=== PATIENT | female | born 1940 | race Caucasian/White ===

== ENCOUNTER 2017-11-09 16:31 | Inpatient (IN) | payer MEDICARE, OTHER ==
[2017-11-09] MEDS: PIPER-TAZO 3.375 GM IV (PMX) 100 ML IVPB ×2 (17:26→23:37)
[2017-11-09] MEDS: SOD CHLORIDE 0.9% 500 ML IV (17:26)
[2017-11-09] MEDS: morphine 4 MG/ML VIAL IV (17:27)
[2017-11-09] MEDS: ONDANSETRON 4 MG INJ IV (17:27)
[2017-11-09 17:29] LABS: ADD MAN DIFF? NO
[2017-11-09 17:34] LABS: WHITE BLOOD COUNT 11.4 10^3/ul (4.8-10.8)
[2017-11-09 17:34] LABS: BASOPHIL # 0.1 10^3/ul (0.0-0.1); BASOPHILS % 0.7 % (0.0-2.0); EOSINOPHILS # 0.2 10^3/ul (0.0-0.5); EOSINOPHILS % 1.7 % (0.0-7.0); HEMATOCRIT 28.3 % (37.0-47.0); HEMOGLOBIN 9.1 g/dl (12.0-16.0); LYMPHOCYTES # 1.6 10^3/ul (0.8-2.9); LYMPHOCYTES % 13.6 % (15.0-51.0); MEAN CORPUSCULAR HEMOGLOBIN 28.7 pg (29.0-33.0); MEAN CORPUSCULAR HGB CONC 32.2 g/dl (32.0-37.0); MEAN CORPUSCULAR VOLUME 89.3 fl (82.0-101.0); MEAN PLATELET VOLUME 8.7 fl (7.4-10.4); MONOCYTE # 0.9 10^3/ul (0.3-0.9); MONOCYTES % 7.5 % (0.0-11.0); NEUTROPHIL # 8.7 10^3/ul (1.6-7.5); PLATELET COUNT 601 10^3/UL (140-415); RED BLOOD COUNT 3.17 10^6/ul (4.20-5.40); RED CELL DISTRIBUTION WIDTH 13.4 % (11.5-14.5)
[2017-11-09 17:52] LABS: INR 1.05; PROTIME 13.8 Sec (11.9-14.9); PT RATIO 1.1
[2017-11-09 17:54] LABS: ALANINE AMINOTRANSFERASE 24 IU/L (13-69); ALBUMIN 3.7 g/dl (3.3-4.9); ALKALINE PHOSPHATASE 165 IU/L (42-121); ANION GAP 14 (8-16); ASPARTATE AMINO TRANSFERASE 35 IU/L (15-46); BLOOD UREA NITROGEN 16 mg/dl (7-20); CALCIUM 8.8 mg/dl (8.4-10.2); CARBON DIOXIDE 27 mmol/L (21-31); CHLORIDE 96 mmol/L (97-110); CREATININE 0.86 mg/dl (0.44-1.00); GLUCOSE 100 mg/dl (70-220); LIPASE 34 U/L (23-300); PARTIAL THROMBOPLASTIN TIME 41.1 Sec (25.0-35.0); SODIUM 132 mmol/L (135-144); TOTAL PROTEIN 7.8 g/dl (6.1-8.1)
[2017-11-09 17:58] LABS: POTASSIUM 5.3 mmol/L (3.5-5.1)
[2017-11-09] MEDS: VANCOMYCIN 1 GM (PMX) 250 ML IVPB (18:18)
[2017-11-09] MEDS: KETOROLAC 15 MG INJ IV (19:33)
[2017-11-09] MEDS ORDERED: VANCOMYCIN IV PER PHARMACY XX (22:30)
[2017-11-09] MEDS ORDERED: ONDANSETRON 4 MG INJ IV (22:30)
[2017-11-09] MEDS ORDERED: DEXTROSE 50% 50 ML SYRINGE IV ×2 (23:30)
[2017-11-09] MEDS ORDERED: GLUCOSE GEL 15 GRAM TUBE BUCCAL (23:30)
[2017-11-09] MEDS ORDERED: GLUCOSE GEL 15 GRAM TUBE PO ×2 (23:30)
[2017-11-09] MEDS ORDERED: GLUCAGON 1 MG INJ IM (23:30)
[2017-11-09] MEDS: HYDROCODONE/APAP (5/325) TAB PO (23:33)
[2017-11-09] MEDS: DEXTROSE 5%-0.45% NACL 1,000 ML IV (23:37)
[2017-11-10] MEDS: INSULIN ASPART [NOVOLOG] 3 ML PEN SC ×5 (01:49→21:00)
[2017-11-10] MEDS: ACCU-CHEK XX ×5 (02:00→21:00)
[2017-11-10 05:07] LABS: ADD MAN DIFF? NO
[2017-11-10 05:11] LABS: BASOPHIL # 0.1 10^3/ul (0.0-0.1); BASOPHILS % 0.8 % (0.0-2.0); EOSINOPHILS # 0.2 10^3/ul (0.0-0.5); EOSINOPHILS % 2.9 % (0.0-7.0); HEMATOCRIT 22.6 % (37.0-47.0); HEMOGLOBIN 7.2 g/dl (12.0-16.0); LYMPHOCYTES # 1.5 10^3/ul (0.8-2.9); LYMPHOCYTES % 18.8 % (15.0-51.0); MEAN CORPUSCULAR HEMOGLOBIN 28.9 pg (29.0-33.0); MEAN CORPUSCULAR HGB CONC 31.9 g/dl (32.0-37.0); MEAN CORPUSCULAR VOLUME 90.8 fl (82.0-101.0); MEAN PLATELET VOLUME 8.8 fl (7.4-10.4); MONOCYTE # 0.7 10^3/ul (0.3-0.9); MONOCYTES % 8.6 % (0.0-11.0); NEUTROPHIL # 5.3 10^3/ul (1.6-7.5); NEUTROPHILS % 68.5 % (39.0-77.0); PLATELET COUNT 432 10^3/UL (140-415); RED BLOOD COUNT 2.49 10^6/ul (4.20-5.40); RED CELL DISTRIBUTION WIDTH 13.7 % (11.5-14.5)
[2017-11-10 05:11] LABS: WHITE BLOOD COUNT 7.8 10^3/ul (4.8-10.8)
[2017-11-10 05:32] LABS: ALANINE AMINOTRANSFERASE 18 IU/L (13-69); ALBUMIN 2.6 g/dl (3.3-4.9); ALBUMIN/GLOBULIN RATIO 0.89; ALKALINE PHOSPHATASE 120 IU/L (42-121); ANION GAP 11 (8-16); ASPARTATE AMINO TRANSFERASE 22 IU/L (15-46); BLOOD UREA NITROGEN 17 mg/dl (7-20); CALCIUM 7.8 mg/dl (8.4-10.2); CARBON DIOXIDE 23 mmol/L (21-31); CHLORIDE 102 mmol/L (97-110); GLUCOSE 132 mg/dl (70-220); POTASSIUM 4.5 mmol/L (3.5-5.1); SODIUM 131 mmol/L (135-144); TOTAL PROTEIN 5.5 g/dl (6.1-8.1)
[2017-11-10] MEDS: PANTOPRAZOLE 40 MG INJ IV (05:40)
[2017-11-10] MEDS: PIPER-TAZO 3.375 GM IV (PMX) 100 ML IVPB ×3 (05:41→21:35)
[2017-11-10] MEDS ORDERED: ROPIVACAINE 0.5 % 30 ML VIAL (09:11)
[2017-11-10] MEDS ORDERED: PROPOFOL 20 ML (09:11)
[2017-11-10] MEDS ORDERED: FENTAnyl 50 MCG/ML VIAL (09:12)
[2017-11-10] MEDS ORDERED: MIDAZOLAM 1 MG/ML 2 ML INJ (09:19)
[2017-11-10] MEDS ORDERED: CEFAZOLIN 1 GM INJ (09:35)
[2017-11-10] MEDS ORDERED: METOCLOPRAMIDE 10 MG INJ (09:39)
[2017-11-10] MEDS ORDERED: ONDANSETRON 4 MG INJ (09:47)
[2017-11-10] MEDS ORDERED: EPHEDrine SULFATE 50 MG/5 ML SYG (09:49)
[2017-11-10] MEDS ORDERED: HYDROmorphONE 1 MG/5 ML IV SYRINGE IV ×3 (10:00)
[2017-11-10] MEDS ORDERED: HYDROmorphONE 0.5 MG/0.5 ML SYG IV ×2 (10:00→10:01)
[2017-11-10] MEDS ORDERED: ONDANSETRON 4 MG INJ IV (10:00)
[2017-11-10] MEDS ORDERED: HYDROmorphONE 1 MG/ML SYG IV (10:01)
[2017-11-10 11:35] LABS: IRON 30 ug/dl (35-150)
[2017-11-10 11:44] LABS: % IRON SATURATION 16 % SAT (22-52); TOTAL IRON BINDING CAPACITY 182 ug/dl (241-421)
[2017-11-10] MEDS: LACTATED RINGER'S 1,000 ML IV (12:03)
[2017-11-10] MEDS: LINAGLIPTIN 5 MG TABLET PO (13:35)
[2017-11-10] MEDS: CYANOCOBALAMIN 1000 MCG INJ IM (15:29)
[2017-11-10] MEDS: TERBINAFINE 250 MG TAB PO ×2 (15:29→21:35)
[2017-11-10] MEDS: EPOETIN ALFA (NESRD) 3,000 UNITS/ML VIAL SC (15:31)
[2017-11-10 15:54] LABS: HEPATITIS C VIRAL ANTIBODY NEGATIVE (NEGATIVE)
[2017-11-10] MEDS: SOD FERRIC GLUC COMPLX 125 MG in SOD CHLORIDE 0.9% 100 ML IVPB (16:49)
[2017-11-10] MEDS: VANCOMYCIN 750 MG in SOD CHLORIDE 0.9% 150 ML IVPB (18:49)
[2017-11-10] MEDS: HYDROCODONE/APAP (5/325) TAB PO (21:33)
[2017-11-10] MEDS: ATORVASTATIN 80 MG TAB PO (21:34)
[2017-11-10] MEDS: ACETYLCYSTEINE 600 MG CAP PO (21:35)
[2017-11-11] MEDS: LACTATED RINGER'S 1,000 ML IV ×2 (01:18→05:25)
[2017-11-11] MEDS: HYDROCODONE/APAP (5/325) TAB PO ×4 (01:51→16:01)
[2017-11-11] MEDS: ACCU-CHEK XX ×8 (02:00→21:00)
[2017-11-11] MEDS: PIPER-TAZO 3.375 GM IV (PMX) 100 ML IVPB ×3 (05:25→21:58)
[2017-11-11] MEDS: PANTOPRAZOLE 40 MG INJ IV (05:25)
[2017-11-11 05:56] LABS: ADD MAN DIFF? NO
[2017-11-11 05:58] LABS: WHITE BLOOD COUNT 7.8 10^3/ul (4.8-10.8)
[2017-11-11 05:58] LABS: RED BLOOD COUNT 2.75 10^6/ul (4.20-5.40)
[2017-11-11 05:59] LABS: BASOPHIL # 0.1 10^3/ul (0.0-0.1); BASOPHILS % 0.9 % (0.0-2.0); EOSINOPHILS # 0.2 10^3/ul (0.0-0.5); EOSINOPHILS % 3.1 % (0.0-7.0); HEMATOCRIT 25.1 % (37.0-47.0); LYMPHOCYTES # 1.5 10^3/ul (0.8-2.9); LYMPHOCYTES % 18.6 % (15.0-51.0); MEAN CORPUSCULAR HEMOGLOBIN 29.1 pg (29.0-33.0); MEAN CORPUSCULAR HGB CONC 31.9 g/dl (32.0-37.0); MEAN CORPUSCULAR VOLUME 91.3 fl (82.0-101.0); MEAN PLATELET VOLUME 8.7 fl (7.4-10.4); MONOCYTE # 0.7 10^3/ul (0.3-0.9); MONOCYTES % 9.2 % (0.0-11.0); NEUTROPHIL # 5.3 10^3/ul (1.6-7.5); NEUTROPHILS % 67.9 % (39.0-77.0); PLATELET COUNT 478 10^3/UL (140-415); RED CELL DISTRIBUTION WIDTH 14.1 % (11.5-14.5)
[2017-11-11 06:07] LABS: HEMOGLOBIN A1C 6.5 % (0-5.9)
[2017-11-11 06:20] LABS: ANION GAP 11 (8-16); BLOOD UREA NITROGEN 15 mg/dl (7-20); CALCIUM 8.1 mg/dl (8.4-10.2); CARBON DIOXIDE 26 mmol/L (21-31); CHLORIDE 104 mmol/L (97-110); CREATININE 1.02 mg/dl (0.44-1.00); GLUCOSE 90 mg/dl (70-220); POTASSIUM 4.5 mmol/L (3.5-5.1); SODIUM 136 mmol/L (135-144)
[2017-11-11] MEDS: INSULIN ASPART [NOVOLOG] 3 ML PEN SC ×4 (07:45→21:00)
[2017-11-11] MEDS: ACETYLCYSTEINE 600 MG CAP PO ×2 (08:41→20:30)
[2017-11-11] MEDS: LINAGLIPTIN 5 MG TABLET PO (08:41)
[2017-11-11] MEDS: CYANOCOBALAMIN 500 MCG TAB PO (08:41)
[2017-11-11] MEDS: TERBINAFINE 250 MG TAB PO ×2 (08:42→20:30)
[2017-11-11] MEDS: ENOXAPARIN 30 MG/0.3 ML SYG SC (08:43)
[2017-11-11] MEDS: morphine 2 MG INJ IV ×2 (10:15→14:10)
[2017-11-11] MEDS: CELECOXIB 100 MG CAP PO ×2 (11:57→20:30)
[2017-11-11] MEDS: GABAPENTIN 300 MG CAP PO ×2 (12:04→20:30)
[2017-11-11] MEDS: KETOROLAC 15 MG INJ IV (13:33)
[2017-11-11] MEDS: ALBUTEROL 0.083% (NEB) 2.5 MG/3 ML AMP HHN ×2 (14:00→20:21)
[2017-11-11] MEDS: SOD FERRIC GLUC COMPLX 125 MG in SOD CHLORIDE 0.9% 100 ML IVPB (16:01)
[2017-11-11] MEDS: VANCOMYCIN 750 MG in SOD CHLORIDE 0.9% 150 ML IVPB (17:25)
[2017-11-11] MEDS: ATORVASTATIN 80 MG TAB PO (20:30)
[2017-11-12] MEDS: ALBUTEROL 0.083% (NEB) 2.5 MG/3 ML AMP HHN ×5 (01:33→20:30)
[2017-11-12] MEDS: ACCU-CHEK XX ×8 (02:00→21:00)
[2017-11-12] MEDS: HYDROCODONE/APAP (5/325) TAB PO ×3 (02:30→21:13)
[2017-11-12] MEDS: PIPER-TAZO 3.375 GM IV (PMX) 100 ML IVPB (05:52)
[2017-11-12] MEDS: PANTOPRAZOLE (EC) 40 MG TAB PO (05:52)
[2017-11-12] MEDS: KETOROLAC 15 MG INJ IV ×2 (06:01→22:03)
[2017-11-12 06:12] LABS: ADD MAN DIFF? NO
[2017-11-12 06:18] LABS: BASOPHIL # 0.1 10^3/ul (0.0-0.1); BASOPHILS % 0.9 % (0.0-2.0); EOSINOPHILS # 0.3 10^3/ul (0.0-0.5); EOSINOPHILS % 3.5 % (0.0-7.0); HEMATOCRIT 23.5 % (37.0-47.0); HEMOGLOBIN 7.3 g/dl (12.0-16.0); LYMPHOCYTES # 1.4 10^3/ul (0.8-2.9); LYMPHOCYTES % 16.3 % (15.0-51.0); MEAN CORPUSCULAR HEMOGLOBIN 28.7 pg (29.0-33.0); MEAN CORPUSCULAR HGB CONC 31.1 g/dl (32.0-37.0); MEAN CORPUSCULAR VOLUME 92.5 fl (82.0-101.0); MEAN PLATELET VOLUME 8.7 fl (7.4-10.4); MONOCYTE # 0.8 10^3/ul (0.3-0.9); MONOCYTES % 9.4 % (0.0-11.0); NEUTROPHIL # 6.1 10^3/ul (1.6-7.5); NEUTROPHILS % 69.6 % (39.0-77.0); PLATELET COUNT 434 10^3/UL (140-415); RED BLOOD COUNT 2.54 10^6/ul (4.20-5.40); RED CELL DISTRIBUTION WIDTH 14.5 % (11.5-14.5)
[2017-11-12 06:18] LABS: WHITE BLOOD COUNT 8.8 10^3/ul (4.8-10.8)
[2017-11-12 06:59] LABS: ANION GAP 11 (8-16); BLOOD UREA NITROGEN 11 mg/dl (7-20); CALCIUM 8.2 mg/dl (8.4-10.2); CARBON DIOXIDE 25 mmol/L (21-31); CHLORIDE 107 mmol/L (97-110); CREATININE 0.95 mg/dl (0.44-1.00); GLUCOSE 80 mg/dl (70-220); POTASSIUM 5.1 mmol/L (3.5-5.1); SODIUM 138 mmol/L (135-144)
[2017-11-12] MEDS: INSULIN ASPART [NOVOLOG] 3 ML PEN SC ×4 (07:46→21:00)
[2017-11-12] MEDS: GABAPENTIN 300 MG CAP PO ×3 (08:15→21:13)
[2017-11-12] MEDS: LINAGLIPTIN 5 MG TABLET PO (08:15)
[2017-11-12] MEDS: CYANOCOBALAMIN 500 MCG TAB PO (08:15)
[2017-11-12] MEDS: CELECOXIB 100 MG CAP PO ×2 (08:15→21:11)
[2017-11-12] MEDS: TERBINAFINE 250 MG TAB PO ×2 (08:15→21:12)
[2017-11-12] MEDS: ACETYLCYSTEINE 600 MG CAP PO ×2 (08:15→21:13)
[2017-11-12] MEDS: ENOXAPARIN 30 MG/0.3 ML SYG SC (08:19)
[2017-11-12] MEDS: ERTAPENEM SODIUM 1 GM in SOD CHLORIDE 0.9% 100 ML IVPB (12:51)
[2017-11-12] MEDS: LIDOCAINE 1% (MPF) 5 ML VIAL SC (15:30)
[2017-11-12] MEDS: SOD FERRIC GLUC COMPLX 125 MG in SOD CHLORIDE 0.9% 100 ML IVPB (16:25)
[2017-11-12 17:47] LABS: VANCOMYCIN,TROUGH 13.2 ug/ml (10.0-20.0)
[2017-11-12] MEDS: VANCOMYCIN 750 MG in SOD CHLORIDE 0.9% 150 ML IVPB (18:09)
[2017-11-12] MEDS: ATORVASTATIN 80 MG TAB PO (21:12)
[2017-11-13] MEDS: ALBUTEROL 0.083% (NEB) 2.5 MG/3 ML AMP HHN ×3 (01:09→14:45)
[2017-11-13] MEDS: ACCU-CHEK XX ×8 (02:00→21:00)
[2017-11-13] MEDS: PANTOPRAZOLE (EC) 40 MG TAB PO (05:21)
[2017-11-13] MEDS: morphine LIQ (10 MG/5 ML) CUP PO (05:21)
[2017-11-13] MEDS ORDERED: PENDING SANTYL ORDER FOR WOUND CARE XX (07:30)
[2017-11-13] MEDS: INSULIN ASPART [NOVOLOG] 3 ML PEN SC ×4 (08:00→21:00)
[2017-11-13] MEDS: TERBINAFINE 250 MG TAB PO ×2 (09:33→22:10)
[2017-11-13] MEDS: ACETYLCYSTEINE 600 MG CAP PO (09:34)
[2017-11-13] MEDS: CELECOXIB 100 MG CAP PO ×2 (09:34→22:11)
[2017-11-13] MEDS: CYANOCOBALAMIN 500 MCG TAB PO (09:34)
[2017-11-13] MEDS: GABAPENTIN 300 MG CAP PO ×2 (09:34→13:58)
[2017-11-13] MEDS: LINAGLIPTIN 5 MG TABLET PO (09:34)
[2017-11-13] MEDS: ENOXAPARIN 30 MG/0.3 ML SYG SC (09:36)
[2017-11-13] MEDS: HYDROCODONE/APAP (5/325) TAB PO (10:35)
[2017-11-13] MEDS ORDERED: POLYETHYLENE GLYCOL 17 GM PACKET PO (13:30)
[2017-11-13] MEDS: ERTAPENEM SODIUM 1 GM in SOD CHLORIDE 0.9% 100 ML IVPB (13:58)
[2017-11-13] MEDS: DOCUSATE SODIUM 100 MG CAP PO (13:58)
[2017-11-13] MEDS: SOD CHLORIDE 0.9% 100 ML (15:45)
[2017-11-13] MEDS: FLUCONAZOLE 100 MG TAB PO (16:24)
[2017-11-13] MEDS: VANCOMYCIN 750 MG in SOD CHLORIDE 0.9% 150 ML IVPB (17:34)
[2017-11-13] MEDS: BALSAM PERU/CASTOR OIL 60 GM TUBE TOP (22:10)
[2017-11-13] MEDS: ATORVASTATIN 80 MG TAB PO (22:11)
[2017-11-13] MEDS: GABAPENTIN 400 MG CAP PO (22:11)
[2017-11-14] MEDS: ACCU-CHEK XX ×8 (02:00→21:00)
[2017-11-14] MEDS: ALBUTEROL 0.083% (NEB) 2.5 MG/3 ML AMP HHN ×4 (02:10→20:25)
[2017-11-14] MEDS: PANTOPRAZOLE (EC) 40 MG TAB PO (06:03)
[2017-11-14 06:15] LABS: ADD MAN DIFF? NO
[2017-11-14 06:33] LABS: PHOSPHORUS 2.7 mg/dl (2.5-4.9); WHITE BLOOD COUNT 8.2 10^3/ul (4.8-10.8)
[2017-11-14 06:33] LABS: BASOPHIL # 0.1 10^3/ul (0.0-0.1); BASOPHILS % 0.9 % (0.0-2.0); EOSINOPHILS # 0.3 10^3/ul (0.0-0.5); EOSINOPHILS % 3.5 % (0.0-7.0); HEMATOCRIT 23.9 % (37.0-47.0); HEMOGLOBIN 7.4 g/dl (12.0-16.0); LYMPHOCYTES # 0.9 10^3/ul (0.8-2.9); LYMPHOCYTES % 10.8 % (15.0-51.0); MEAN CORPUSCULAR HEMOGLOBIN 28.7 pg (29.0-33.0); MEAN CORPUSCULAR VOLUME 92.6 fl (82.0-101.0); MEAN PLATELET VOLUME 8.9 fl (7.4-10.4); MONOCYTE # 0.9 10^3/ul (0.3-0.9); MONOCYTES % 10.3 % (0.0-11.0); NEUTROPHIL # 6.1 10^3/ul (1.6-7.5); NUCLEATED RED BLOOD CELLS% 0.2 /100WBC (0.0-0.0); PLATELET COUNT 411 10^3/UL (140-415); RED BLOOD COUNT 2.58 10^6/ul (4.20-5.40); RED CELL DISTRIBUTION WIDTH 15.1 % (11.5-14.5)
[2017-11-14 06:51] LABS: ANION GAP 9 (8-16); BLOOD UREA NITROGEN 7 mg/dl (7-20); CALCIUM 8.3 mg/dl (8.4-10.2); CARBON DIOXIDE 25 mmol/L (21-31); CHLORIDE 108 mmol/L (97-110); CREATININE 0.72 mg/dl (0.44-1.00); GLUCOSE 98 mg/dl (70-220); POTASSIUM 4.1 mmol/L (3.5-5.1); SODIUM 138 mmol/L (135-144)
[2017-11-14] MEDS: INSULIN ASPART [NOVOLOG] 3 ML PEN SC ×4 (08:00→21:00)
[2017-11-14] MEDS: LINAGLIPTIN 5 MG TABLET PO (08:19)
[2017-11-14] MEDS: CELECOXIB 100 MG CAP PO ×2 (08:47→21:20)
[2017-11-14] MEDS: GABAPENTIN 400 MG CAP PO ×3 (08:47→21:20)
[2017-11-14] MEDS: FLUCONAZOLE 100 MG TAB PO (08:47)
[2017-11-14] MEDS: TERBINAFINE 250 MG TAB PO ×2 (08:47→21:20)
[2017-11-14] MEDS: ENOXAPARIN 30 MG/0.3 ML SYG SC (08:48)
[2017-11-14] MEDS: CYANOCOBALAMIN 500 MCG TAB PO (08:48)
[2017-11-14] MEDS: BALSAM PERU/CASTOR OIL 60 GM TUBE TOP ×2 (08:55→21:22)
[2017-11-14] MEDS: ERTAPENEM SODIUM 1 GM in SOD CHLORIDE 0.9% 100 ML IVPB (13:20)
[2017-11-14] MEDS: HYDROCODONE/APAP (5/325) TAB PO (13:25)
[2017-11-14] MEDS: DOCUSATE SODIUM 100 MG CAP PO (13:25)
[2017-11-14] MEDS: NEBIVOLOL 5 MG TAB PO (14:36)
[2017-11-14] MEDS: LISINOPRIL 5 MG TAB PO (16:27)
[2017-11-14] MEDS: morphine LIQ (10 MG/5 ML) CUP PO (16:32)
[2017-11-14] MEDS: VANCOMYCIN 750 MG in SOD CHLORIDE 0.9% 150 ML IVPB (18:02)
[2017-11-14] MEDS: ATORVASTATIN 80 MG TAB PO (21:20)
[2017-11-15] MEDS: ALBUTEROL 0.083% (NEB) 2.5 MG/3 ML AMP HHN ×4 (02:00→21:19)
[2017-11-15] MEDS: ACCU-CHEK XX ×9 (02:00→23:29)
[2017-11-15] MEDS: PANTOPRAZOLE (EC) 40 MG TAB PO (05:19)
[2017-11-15] MEDS: morphine LIQ (10 MG/5 ML) CUP PO (05:19)
[2017-11-15] MEDS: INSULIN ASPART [NOVOLOG] 3 ML PEN SC ×4 (08:00→21:00)
[2017-11-15] MEDS: ENOXAPARIN 30 MG/0.3 ML SYG SC (11:23)
[2017-11-15] MEDS: CELECOXIB 100 MG CAP PO ×2 (11:24→20:32)
[2017-11-15] MEDS: NEBIVOLOL 5 MG TAB PO (11:24)
[2017-11-15] MEDS: BALSAM PERU/CASTOR OIL 60 GM TUBE TOP ×2 (11:25→20:33)
[2017-11-15] MEDS: GABAPENTIN 400 MG CAP PO ×3 (11:25→20:32)
[2017-11-15] MEDS: LINAGLIPTIN 5 MG TABLET PO (11:25)
[2017-11-15] MEDS: FLUCONAZOLE 100 MG TAB PO (11:25)
[2017-11-15] MEDS: CYANOCOBALAMIN 500 MCG TAB PO (11:25)
[2017-11-15] MEDS: TERBINAFINE 250 MG TAB PO ×2 (11:25→20:32)
[2017-11-15] MEDS: LISINOPRIL 5 MG TAB PO (11:28)
[2017-11-15] MEDS: ERTAPENEM SODIUM 1 GM in SOD CHLORIDE 0.9% 100 ML IVPB (14:23)
[2017-11-15] MEDS: CYANOCOBALAMIN 1000 MCG INJ IM (15:29)
[2017-11-15] MEDS: FERROUS FUMARATE (SR) TAB PO (15:29)
[2017-11-15] MEDS: VANCOMYCIN 750 MG in SOD CHLORIDE 0.9% 150 ML IVPB (18:09)
[2017-11-15] MEDS: ATORVASTATIN 80 MG TAB PO (20:32)
[2017-11-15] MEDS: HYDROCODONE/APAP (5/325) TAB PO (20:33)
[2017-11-16] MEDS: ALBUTEROL 0.083% (NEB) 2.5 MG/3 ML AMP HHN (01:39)
[2017-11-16] MEDS: PANTOPRAZOLE (EC) 40 MG TAB PO (05:38)
[2017-11-16 06:00] LABS: ADD MAN DIFF? NO
[2017-11-16 06:02] LABS: BASOPHIL # 0.1 10^3/ul (0.0-0.1); BASOPHILS % 0.7 % (0.0-2.0); EOSINOPHILS # 0.3 10^3/ul (0.0-0.5); EOSINOPHILS % 4.8 % (0.0-7.0); HEMATOCRIT 23.9 % (37.0-47.0); HEMOGLOBIN 7.6 g/dl (12.0-16.0); LYMPHOCYTES # 1.4 10^3/ul (0.8-2.9); LYMPHOCYTES % 20.1 % (15.0-51.0); MEAN CORPUSCULAR HEMOGLOBIN 29.9 pg (29.0-33.0); MEAN CORPUSCULAR HGB CONC 31.8 g/dl (32.0-37.0); MEAN CORPUSCULAR VOLUME 94.1 fl (82.0-101.0); MEAN PLATELET VOLUME 8.7 fl (7.4-10.4); MONOCYTE # 0.7 10^3/ul (0.3-0.9); MONOCYTES % 9.4 % (0.0-11.0); NEUTROPHIL # 4.4 10^3/ul (1.6-7.5); NEUTROPHILS % 64.1 % (39.0-77.0); NUCLEATED RED BLOOD CELLS% 0.4 /100WBC (0.0-0.0); PLATELET COUNT 366 10^3/UL (140-415); RED BLOOD COUNT 2.54 10^6/ul (4.20-5.40); RED CELL DISTRIBUTION WIDTH 15.4 % (11.5-14.5)
[2017-11-16 06:02] LABS: WHITE BLOOD COUNT 6.9 10^3/ul (4.8-10.8)
[2017-11-16 07:00] LABS: MAGNESIUM 1.9 mg/dl (1.7-2.5)
[2017-11-16 07:00] LABS: PHOSPHORUS 3.1 mg/dl (2.5-4.9)
[2017-11-16 07:06] LABS: ANION GAP 13 (8-16); BLOOD UREA NITROGEN 8 mg/dl (7-20); CALCIUM 7.9 mg/dl (8.4-10.2); CARBON DIOXIDE 26 mmol/L (21-31); CHLORIDE 107 mmol/L (97-110); CREATININE 0.65 mg/dl (0.44-1.00); GLUCOSE 69 mg/dl (70-220); POTASSIUM 4.1 mmol/L (3.5-5.1); SODIUM 142 mmol/L (135-144)
[2017-11-16] MEDS: ACCU-CHEK XX ×7 (07:30→21:00)
[2017-11-16] MEDS: INSULIN ASPART [NOVOLOG] 3 ML PEN SC ×4 (07:57→21:00)
[2017-11-16] MEDS: CYANOCOBALAMIN 500 MCG TAB PO ×4 (08:22→12:18)
[2017-11-16] MEDS: NEBIVOLOL 5 MG TAB PO (08:23)
[2017-11-16] MEDS: FLUCONAZOLE 100 MG TAB PO (08:23)
[2017-11-16] MEDS: GABAPENTIN 400 MG CAP PO ×3 (08:23→21:29)
[2017-11-16] MEDS: LISINOPRIL 5 MG TAB PO ×2 (08:23→21:29)
[2017-11-16] MEDS: FERROUS FUMARATE (SR) TAB PO (08:23)
[2017-11-16] MEDS: CELECOXIB 100 MG CAP PO ×2 (08:23→21:29)
[2017-11-16] MEDS: TERBINAFINE 250 MG TAB PO ×2 (08:23→21:29)
[2017-11-16] MEDS: LINAGLIPTIN 5 MG TABLET PO (08:23)
[2017-11-16] MEDS: ENOXAPARIN 30 MG/0.3 ML SYG SC (08:25)
[2017-11-16] MEDS: BALSAM PERU/CASTOR OIL 60 GM TUBE TOP ×2 (08:25→21:30)
[2017-11-16] MEDS: HYDROCODONE/APAP (5/325) TAB PO ×2 (11:17→18:38)
[2017-11-16] MEDS: ERTAPENEM SODIUM 1 GM in SOD CHLORIDE 0.9% 100 ML IVPB (12:18)
[2017-11-16] MEDS: SOD FERRIC GLUC COMPLX 125 MG in SOD CHLORIDE 0.9% 100 ML IVPB (16:20)
[2017-11-16] MEDS: VANCOMYCIN 750 MG in SOD CHLORIDE 0.9% 150 ML IVPB (17:32)
[2017-11-16] MEDS: ATORVASTATIN 80 MG TAB PO (21:29)
[2017-11-17] MEDS: HYDROCODONE/APAP (5/325) TAB PO ×4 (00:33→20:53)
[2017-11-17] MEDS: ACCU-CHEK XX ×8 (02:00→21:12)
[2017-11-17] MEDS: PANTOPRAZOLE (EC) 40 MG TAB PO (05:35)
[2017-11-17] MEDS: INSULIN ASPART [NOVOLOG] 3 ML PEN SC ×4 (08:00→21:00)
[2017-11-17] MEDS: ENOXAPARIN 30 MG/0.3 ML SYG SC (08:57)
[2017-11-17] MEDS: FLUCONAZOLE 100 MG TAB PO (08:59)
[2017-11-17] MEDS: FERROUS FUMARATE (SR) TAB PO (08:59)
[2017-11-17] MEDS: CYANOCOBALAMIN 500 MCG TAB PO (08:59)
[2017-11-17] MEDS: LINAGLIPTIN 5 MG TABLET PO (08:59)
[2017-11-17] MEDS: CELECOXIB 100 MG CAP PO ×2 (08:59→20:52)
[2017-11-17] MEDS: GABAPENTIN 400 MG CAP PO ×3 (08:59→20:52)
[2017-11-17] MEDS: TERBINAFINE 250 MG TAB PO (09:00)
[2017-11-17] MEDS: LISINOPRIL 5 MG TAB PO ×2 (09:00→20:53)
[2017-11-17] MEDS: NEBIVOLOL 5 MG TAB PO (09:00)
[2017-11-17] MEDS: BALSAM PERU/CASTOR OIL 60 GM TUBE TOP ×2 (09:01→21:11)
[2017-11-17] MEDS: ERTAPENEM SODIUM 1 GM in SOD CHLORIDE 0.9% 100 ML IVPB (13:06)
[2017-11-17] MEDS: SOD FERRIC GLUC COMPLX 125 MG in SOD CHLORIDE 0.9% 100 ML IVPB (16:33)
[2017-11-17 18:18] LABS: VANCOMYCIN,TROUGH 14.8 ug/ml (10.0-20.0)
[2017-11-17] MEDS: VANCOMYCIN 750 MG in SOD CHLORIDE 0.9% 150 ML IVPB (18:42)
[2017-11-17] MEDS: ATORVASTATIN 80 MG TAB PO (20:52)
[2017-11-17] MEDS ORDERED: metFORMIN 500 MG TAB (21:04)
[2017-11-17] MEDS: metFORMIN (XR) 500 MG TAB PO (22:28)
[2017-11-18] MEDS: ACCU-CHEK XX ×8 (02:00→21:00)
[2017-11-18 05:04] LABS: ADD MAN DIFF? NO
[2017-11-18 05:16] LABS: WHITE BLOOD COUNT 6.7 10^3/ul (4.8-10.8)
[2017-11-18 05:16] LABS: BASOPHIL # 0.1 10^3/ul (0.0-0.1); BASOPHILS % 0.9 % (0.0-2.0); EOSINOPHILS # 0.3 10^3/ul (0.0-0.5); EOSINOPHILS % 4.2 % (0.0-7.0); HEMATOCRIT 25.5 % (37.0-47.0); HEMOGLOBIN 8.1 g/dl (12.0-16.0); LYMPHOCYTES # 1.3 10^3/ul (0.8-2.9); LYMPHOCYTES % 19.7 % (15.0-51.0); MEAN CORPUSCULAR HEMOGLOBIN 29.8 pg (29.0-33.0); MEAN CORPUSCULAR HGB CONC 31.8 g/dl (32.0-37.0); MEAN CORPUSCULAR VOLUME 93.8 fl (82.0-101.0); MEAN PLATELET VOLUME 9.5 fl (7.4-10.4); MONOCYTE # 0.7 10^3/ul (0.3-0.9); MONOCYTES % 10.3 % (0.0-11.0); NEUTROPHIL # 4.3 10^3/ul (1.6-7.5); NEUTROPHILS % 64.2 % (39.0-77.0); PLATELET COUNT 354 10^3/UL (140-415); RED BLOOD COUNT 2.72 10^6/ul (4.20-5.40); RED CELL DISTRIBUTION WIDTH 16.3 % (11.5-14.5)
[2017-11-18 05:32] LABS: ANION GAP 11 (8-16); BLOOD UREA NITROGEN 10 mg/dl (7-20); CALCIUM 8.1 mg/dl (8.4-10.2); CARBON DIOXIDE 32 mmol/L (21-31); CHLORIDE 103 mmol/L (97-110); CREATININE 0.67 mg/dl (0.44-1.00); GLUCOSE 84 mg/dl (70-220); POTASSIUM 3.8 mmol/L (3.5-5.1); SODIUM 142 mmol/L (135-144)
[2017-11-18] MEDS: PANTOPRAZOLE (EC) 40 MG TAB PO (06:26)
[2017-11-18] MEDS: INSULIN ASPART [NOVOLOG] 3 ML PEN SC ×4 (08:00→21:00)
[2017-11-18] MEDS: GABAPENTIN 400 MG CAP PO ×3 (09:35→20:26)
[2017-11-18] MEDS: FERROUS FUMARATE (SR) TAB PO (09:35)
[2017-11-18] MEDS: FLUCONAZOLE 100 MG TAB PO (09:35)
[2017-11-18] MEDS: CELECOXIB 100 MG CAP PO (09:35)
[2017-11-18] MEDS: NEBIVOLOL 5 MG TAB PO (09:35)
[2017-11-18] MEDS: BALSAM PERU/CASTOR OIL 60 GM TUBE TOP ×2 (09:36→21:35)
[2017-11-18] MEDS: CYANOCOBALAMIN 500 MCG TAB PO (09:36)
[2017-11-18] MEDS: LISINOPRIL 5 MG TAB PO ×2 (09:36→21:31)
[2017-11-18] MEDS: ENOXAPARIN 30 MG/0.3 ML SYG SC (09:37)
[2017-11-18] MEDS: ERTAPENEM SODIUM 1 GM in SOD CHLORIDE 0.9% 100 ML IVPB (12:36)
[2017-11-18] MEDS: VANCOMYCIN 750 MG in SOD CHLORIDE 0.9% 150 ML IVPB (18:03)
[2017-11-18] MEDS: ATORVASTATIN 80 MG TAB PO (20:26)
[2017-11-18] MEDS: metFORMIN (XR) 500 MG TAB PO (21:33)
[2017-11-18] MEDS: HYDROCODONE/APAP (5/325) TAB PO (22:59)
[2017-11-19] MEDS: ACCU-CHEK XX ×8 (01:46→21:00)
[2017-11-19] MEDS: PANTOPRAZOLE (EC) 40 MG TAB PO (06:14)
[2017-11-19] MEDS: INSULIN ASPART [NOVOLOG] 3 ML PEN SC ×4 (08:00→20:55)
[2017-11-19] MEDS: CYANOCOBALAMIN 500 MCG TAB PO (09:18)
[2017-11-19] MEDS: NEBIVOLOL 5 MG TAB PO (09:19)
[2017-11-19] MEDS: FERROUS FUMARATE (SR) TAB PO (09:19)
[2017-11-19] MEDS: LISINOPRIL 5 MG TAB PO ×2 (09:19→20:55)
[2017-11-19] MEDS: GABAPENTIN 400 MG CAP PO ×2 (09:19→12:50)
[2017-11-19] MEDS: BALSAM PERU/CASTOR OIL 60 GM TUBE TOP ×2 (09:20→21:03)
[2017-11-19] MEDS: FLUCONAZOLE 100 MG TAB PO (09:20)
[2017-11-19] MEDS: ENOXAPARIN 30 MG/0.3 ML SYG SC (09:21)
[2017-11-19] MEDS: ERTAPENEM SODIUM 1 GM in SOD CHLORIDE 0.9% 100 ML IVPB (12:49)
[2017-11-19] MEDS: ALTEPLASE (CATHFLO) 2 MG INJ CATHETER (17:36)
[2017-11-19] MEDS: VANCOMYCIN 750 MG in SOD CHLORIDE 0.9% 150 ML IVPB (18:45)
[2017-11-19] MEDS: ATORVASTATIN 80 MG TAB PO (20:55)
[2017-11-19] MEDS: GABAPENTIN 100 MG CAP PO (20:55)
[2017-11-19] MEDS: metFORMIN (XR) 500 MG TAB PO (21:01)
[2017-11-19] MEDS: hydrALAzine 20 MG INJ IV (22:15)
[2017-11-20] MEDS: ACCU-CHEK XX ×7 (02:00→21:00)
[2017-11-20] MEDS: ACETAMINOPHEN 325 MG TAB PO (03:14)
[2017-11-20] MEDS: PANTOPRAZOLE (EC) 40 MG TAB PO (06:02)
[2017-11-20 06:05] LABS: ANION GAP 9 (8-16); BLOOD UREA NITROGEN 12 mg/dl (7-20); CALCIUM 8.8 mg/dl (8.4-10.2); CARBON DIOXIDE 31 mmol/L (21-31); CHLORIDE 101 mmol/L (97-110); CREATININE 0.57 mg/dl (0.44-1.00); GLUCOSE 95 mg/dl (70-220); SODIUM 137 mmol/L (135-144)
[2017-11-20] MEDS: INSULIN ASPART [NOVOLOG] 3 ML PEN SC ×4 (08:00→21:00)
[2017-11-20] MEDS: FERROUS FUMARATE (SR) TAB PO (09:34)
[2017-11-20] MEDS: FLUCONAZOLE 100 MG TAB PO (09:34)
[2017-11-20] MEDS: NEBIVOLOL 5 MG TAB PO (09:34)
[2017-11-20] MEDS: GABAPENTIN 100 MG CAP PO ×3 (09:34→21:09)
[2017-11-20] MEDS: CYANOCOBALAMIN 500 MCG TAB PO (09:34)
[2017-11-20] MEDS: LISINOPRIL 5 MG TAB PO (09:34)
[2017-11-20] MEDS: ENOXAPARIN 30 MG/0.3 ML SYG SC (09:35)
[2017-11-20] MEDS: BALSAM PERU/CASTOR OIL 60 GM TUBE TOP ×2 (09:36→21:11)
[2017-11-20 11:22] LABS: ADD UMIC NO; UR ASCORBIC ACID NEGATIVE (NEGATIVE); UR BILIRUBIN (Dip) NEGATIVE (NEGATIVE); UR BLOOD (Dip) NEGATIVE (NEGATIVE); UR CLARITY CLEAR (CLEAR); UR COLOR COLORLESS (YELLOW); UR GLUCOSE (Dip) 3+ mg/dL (NEGATIVE); UR KETONES (Dip) NEGATIVE (NEGATIVE); UR LEUKOCYTE ESTERASE (Dip) NEGATIVE Leu/ul (NEGATIVE); UR NITRITE (Dip) NEGATIVE (NEGATIVE); UR SPECIFIC GRAVITY (Dip) 1.008 (1.003-1.030); UR TOTAL PROTEIN (Dip) NEGATIVE (NEGATIVE); UR UROBILINOGEN (Dip) NEGATIVE (NEGATIVE)
[2017-11-20] MEDS: ERTAPENEM SODIUM 1 GM in SOD CHLORIDE 0.9% 100 ML IVPB (13:06)
[2017-11-20] MEDS: metFORMIN (XR) 500 MG TAB PO ×3 (17:58→18:05)
[2017-11-20] MEDS: VANCOMYCIN 750 MG in SOD CHLORIDE 0.9% 150 ML IVPB (17:59)
[2017-11-20] MEDS: hydrALAzine 20 MG INJ IV (18:40)
[2017-11-20] MEDS ORDERED: LISINOPRIL 10 MG TAB PO (21:00)
[2017-11-20] MEDS: ATORVASTATIN 80 MG TAB PO (21:09)
[2017-11-20] MEDS: LISINOPRIL 20 MG TAB PO (21:09)
[2017-11-21] MEDS: ACCU-CHEK XX ×5 (02:00→20:42)
[2017-11-21] MEDS: PANTOPRAZOLE (EC) 40 MG TAB PO (06:08)
[2017-11-21] MEDS: INSULIN ASPART [NOVOLOG] 3 ML PEN SC ×4 (08:00→20:41)
[2017-11-21] MEDS: FLUCONAZOLE 100 MG TAB PO (08:34)
[2017-11-21] MEDS: CYANOCOBALAMIN 500 MCG TAB PO (08:34)
[2017-11-21] MEDS: FERROUS FUMARATE (SR) TAB PO (08:34)
[2017-11-21] MEDS: NEBIVOLOL 5 MG TAB PO (08:35)
[2017-11-21] MEDS: GABAPENTIN 100 MG CAP PO ×2 (08:35→20:36)
[2017-11-21] MEDS: LISINOPRIL 20 MG TAB PO ×2 (08:35→20:35)
[2017-11-21] MEDS: ENOXAPARIN 30 MG/0.3 ML SYG SC (08:36)
[2017-11-21] MEDS: BALSAM PERU/CASTOR OIL 60 GM TUBE TOP ×2 (08:38→20:42)
[2017-11-21] MEDS: ERTAPENEM SODIUM 1 GM in SOD CHLORIDE 0.9% 100 ML IVPB (12:40)
[2017-11-21] MEDS: CELECOXIB 100 MG CAP PO ×2 (12:52→20:36)
[2017-11-21] MEDS: metFORMIN (XR) 500 MG TAB PO (18:00)
[2017-11-21] MEDS: VANCOMYCIN 750 MG in SOD CHLORIDE 0.9% 150 ML IVPB (18:00)
[2017-11-21] MEDS: HYDROCODONE/APAP (5/325) TAB PO (18:01)
[2017-11-21] MEDS: ATORVASTATIN 80 MG TAB PO (20:36)
[2017-11-22] MEDS: DEXTROSE 5% 1,000 ML IV (04:30)
[2017-11-22 04:54] LABS: ADD MAN DIFF? NO
[2017-11-22 05:03] LABS: BASOPHIL # 0.1 10^3/ul (0.0-0.1); EOSINOPHILS # 0.4 10^3/ul (0.0-0.5); EOSINOPHILS % 4.1 % (0.0-7.0); HEMATOCRIT 28.3 % (37.0-47.0); HEMOGLOBIN 9.1 g/dl (12.0-16.0); LYMPHOCYTES # 1.3 10^3/ul (0.8-2.9); LYMPHOCYTES % 14.9 % (15.0-51.0); MEAN CORPUSCULAR HEMOGLOBIN 29.2 pg (29.0-33.0); MEAN CORPUSCULAR HGB CONC 32.2 g/dl (32.0-37.0); MEAN CORPUSCULAR VOLUME 90.7 fl (82.0-101.0); MEAN PLATELET VOLUME 9.4 fl (7.4-10.4); MONOCYTE # 0.8 10^3/ul (0.3-0.9); MONOCYTES % 8.7 % (0.0-11.0); NEUTROPHIL # 6.2 10^3/ul (1.6-7.5); NEUTROPHILS % 70.8 % (39.0-77.0); PLATELET COUNT 468 10^3/UL (140-415); RED BLOOD COUNT 3.12 10^6/ul (4.20-5.40); RED CELL DISTRIBUTION WIDTH 16.3 % (11.5-14.5)
[2017-11-22 05:03] LABS: WHITE BLOOD COUNT 8.8 10^3/ul (4.8-10.8)
[2017-11-22 05:22] LABS: ANION GAP 13 (8-16); BLOOD UREA NITROGEN 21 mg/dl (7-20); CALCIUM 8.2 mg/dl (8.4-10.2); CARBON DIOXIDE 25 mmol/L (21-31); CHLORIDE 97 mmol/L (97-110); CREATININE 0.63 mg/dl (0.44-1.00); GLUCOSE 70 mg/dl (70-220); POTASSIUM 3.6 mmol/L (3.5-5.1); SODIUM 131 mmol/L (135-144)
[2017-11-22] MEDS: PANTOPRAZOLE (EC) 40 MG TAB PO (05:45)
[2017-11-22] MEDS: INSULIN ASPART [NOVOLOG] 3 ML PEN SC ×4 (08:00→20:31)
[2017-11-22] MEDS: CYANOCOBALAMIN 500 MCG TAB PO (08:07)
[2017-11-22] MEDS: FLUCONAZOLE 100 MG TAB PO (08:07)
[2017-11-22] MEDS: FERROUS FUMARATE (SR) TAB PO (08:08)
[2017-11-22] MEDS: NEBIVOLOL 5 MG TAB PO (08:08)
[2017-11-22] MEDS: LISINOPRIL 20 MG TAB PO ×2 (08:08→20:14)
[2017-11-22] MEDS: GABAPENTIN 100 MG CAP PO ×2 (08:08→20:13)
[2017-11-22] MEDS: CELECOXIB 100 MG CAP PO ×2 (08:08→20:14)
[2017-11-22] MEDS: ENOXAPARIN 30 MG/0.3 ML SYG SC (08:09)
[2017-11-22] MEDS: BALSAM PERU/CASTOR OIL 60 GM TUBE TOP ×2 (08:13→20:25)
[2017-11-22] MEDS: ACCU-CHEK XX ×3 (08:13→17:35)
[2017-11-22] MEDS: ERTAPENEM SODIUM 1 GM in SOD CHLORIDE 0.9% 100 ML IVPB (14:57)
[2017-11-22] MEDS: hydrALAzine 20 MG INJ IV (15:50)
[2017-11-22 17:36] LABS: VANCOMYCIN,TROUGH 14.3 ug/ml (10.0-20.0)
[2017-11-22] MEDS: VANCOMYCIN 750 MG in SOD CHLORIDE 0.9% 150 ML IVPB (18:00)
[2017-11-22] MEDS: metFORMIN (XR) 500 MG TAB PO (18:05)
[2017-11-22] MEDS: ATORVASTATIN 80 MG TAB PO (20:13)
== END 2017-11-22 20:45 | DRG 617 ==
LOC: PP2 11-19 01:28 → E/R 16:31 → PP2 17:53
PROC: 0Y6W0Z0 Detachment at Left 4th Toe, Complete, Open Approach (ICD-10-PCS; principal; 2017-11-10 09:18)
PROC: 0Y6Y0Z0 Detachment at Left 5th Toe, Complete, Open Approach (ICD-10-PCS; 2017-11-10 09:18)
PROC: 02HV33Z Insertion of Infusion Device into Superior Vena Cava, Percutaneous Approach (ICD-10-PCS; 2017-11-10 09:18)
DX: E11.621 Type 2 diabetes mellitus with foot ulcer (principal); L03.116 Cellulitis of left lower limb; E87.1 Hypo-osmolality and hyponatremia; E11.52 Type 2 diabetes mellitus with diabetic peripheral angiopathy with gangrene; M86.9 Osteomyelitis, unspecified; L97.529 Non-pressure chronic ulcer of other part of left foot with unspecified severity; E11.628 Type 2 diabetes mellitus with other skin complications; I10 Essential (primary) hypertension; E78.5 Hyperlipidemia, unspecified; E11.69 Type 2 diabetes mellitus with other specified complication; D50.9 Iron deficiency anemia, unspecified; E53.8 Deficiency of other specified B group vitamins; B35.1 Tinea unguium; B96.20 Unspecified Escherichia coli [E. coli] as the cause of diseases classified elsewhere; Z16.24 Resistance to multiple antibiotics
CPT/HCPCS: 36415; 36569; 71045; 76937; 80048; 80053; 80202; 81003; 82607; 82728; 82962; 83036; 83540; 83690; 83735; 84100; 85018; 85025; 85610; 85730; 86803; 87070; 87086; 88305; 88311; 94640; 94664; 96374; 97110; 97161; 97530; 99285-25

== ENCOUNTER 2018-02-22 14:35 | Day surgery (SDC) | payer MEDICARE, OTHER ==
[2018-02-22 16:19] LABS: INR 0.86; PROTIME 11.8 Sec (11.9-14.9); PT RATIO 0.9
[2018-02-22 16:34] LABS: PARTIAL THROMBOPLASTIN TIME 38.6 Sec (23.0-35.0)
[2018-02-22] MEDS ORDERED: MIDAZOLAM 1 MG/ML 2 ML INJ (16:45)
[2018-02-22] MEDS ORDERED: LIDOCAINE 2% (SDV) 5 ML INJ (16:45)
[2018-02-22] MEDS ORDERED: hydrALAzine 20 MG INJ (16:49)
[2018-02-22] MEDS ORDERED: CEFAZOLIN 1 GM INJ (16:59)
[2018-02-22] MEDS ORDERED: BUPIVACAINE 0.25%/EPI (MDV) 50 ML VIAL INJ (17:11)
[2018-02-22] MEDS ORDERED: LIDOCAINE 1%/EPI 30 ML INJ (17:11)
[2018-02-22] MEDS ORDERED: PHENYLephrine (100 MCG/ML) 5ML SYG (17:23)
[2018-02-22] MEDS: POLYMYXIN/BACITRACIN 1L IRRIG (17:36)
[2018-02-22] MEDS: BUPIVACAINE 0.5% (SDV) 30 ML INJ (17:37)
== END 2018-02-22 19:40 | disposition home or self-care (01) ==
LOC: SDS 14:35
DX: E11.621 Type 2 diabetes mellitus with foot ulcer (principal); E11.42 Type 2 diabetes mellitus with diabetic polyneuropathy
CPT/HCPCS: 11044; 82962; 85610; 85730; 88304

== ENCOUNTER 2018-06-11 11:43 | Emergency (ER) | payer MEDICARE, OTHER ==
[2018-06-11 12:46] LABS: ADD MAN DIFF? NO
[2018-06-11 12:52] LABS: BASOPHIL # 0.1 10^3/ul (0.0-0.1); BASOPHILS % 0.7 % (0.0-2.0); EOSINOPHILS # 0.3 10^3/ul (0.0-0.5); EOSINOPHILS % 3.1 % (0.0-7.0); HEMATOCRIT 25.5 % (37.0-47.0); LYMPHOCYTES # 1.4 10^3/ul (0.8-2.9); LYMPHOCYTES % 16.2 % (15.0-51.0); MEAN CORPUSCULAR HEMOGLOBIN 32.9 pg (29.0-33.0); MEAN CORPUSCULAR HGB CONC 31.4 g/dl (32.0-37.0); MEAN CORPUSCULAR VOLUME 104.9 fl (82.0-101.0); MONOCYTE # 0.6 10^3/ul (0.3-0.9); MONOCYTES % 7.3 % (0.0-11.0); NEUTROPHIL # 6.1 10^3/ul (1.6-7.5); NEUTROPHILS % 72.2 % (39.0-77.0); PLATELET COUNT 331 10^3/UL (140-415); RED BLOOD COUNT 2.43 10^6/ul (4.20-5.40); RED CELL DISTRIBUTION WIDTH 13.6 % (11.5-14.5)
[2018-06-11 12:52] LABS: WHITE BLOOD COUNT 8.4 10^3/ul (4.8-10.8)
[2018-06-11] MEDS: SOD CHLORIDE 0.9% 1,000 ML IV (13:08)
[2018-06-11] MEDS: DIPHENHYDRAMINE 50 MG INJ IV (13:08)
[2018-06-11] MEDS: HYDROmorphONE 1 MG/ML SYG IV (13:09)
[2018-06-11] MEDS: METOCLOPRAMIDE 10 MG INJ IV (13:09)
[2018-06-11 13:10] LABS: ANION GAP 8 (5-13); BLOOD UREA NITROGEN 39 mg/dl (7-20); CALCIUM 9.2 mg/dl (8.4-10.2); CARBON DIOXIDE 22 mmol/L (21-31); CHLORIDE 108 mmol/L (97-110); CREATININE 1.15 mg/dl (0.44-1.00); GLUCOSE 217 mg/dl (70-220); SODIUM 138 mmol/L (135-144)
[2018-06-11 13:11] LABS: ADD UMIC NO; INR 0.97; UR ASCORBIC ACID NEGATIVE (NEGATIVE); UR BILIRUBIN (Dip) NEGATIVE (NEGATIVE); UR BLOOD (Dip) NEGATIVE (NEGATIVE); UR CLARITY CLEAR (CLEAR); UR COLOR YELLOW (YELLOW); UR GLUCOSE (Dip) NEGATIVE (NEGATIVE); UR KETONES (Dip) NEGATIVE (NEGATIVE); UR LEUKOCYTE ESTERASE (Dip) NEGATIVE Leu/ul (NEGATIVE); UR NITRITE (Dip) NEGATIVE (NEGATIVE); UR SPECIFIC GRAVITY (Dip) 1.005 (1.003-1.030); UR TOTAL PROTEIN (Dip) NEGATIVE (NEGATIVE); UR UROBILINOGEN (Dip) NEGATIVE (NEGATIVE)
[2018-06-11 13:12] LABS: PARTIAL THROMBOPLASTIN TIME 32.8 Sec (23.0-35.0)
[2018-06-11 13:16] LABS: POTASSIUM 5.4 mmol/L (3.5-5.1)
== END 2018-06-11 17:30 | disposition home or self-care (01) ==
LOC: E/R 11:43
DX: R51 Headache (principal); I10 Essential (primary) hypertension; E11.9 Type 2 diabetes mellitus without complications; Z79.82 Long term (current) use of aspirin; Z79.84 Long term (current) use of oral hypoglycemic drugs
CPT/HCPCS: 36415; 70450; 80048; 81003; 85025; 85610; 85730; 96374; 96375; 99285-25